=== PATIENT | female | born 1990 | race Caucasian/White ===

== ENCOUNTER 2017-09-28 11:54 | Emergency (ER) | payer MEDICAID ==
[~2017-09-28] VITALS: Ht 162.6 cm; Wt 61.2 kg
--- NOTE | 2017-09-28 13:17 | Emergency Room Report ---
History of Present Illness General Chief Complaint: Abdominal Pain Source: Patient Present Illness HPI The patient is a 27 old female who denies any medical history presenting for abdominal pain which began 4 days prior. She describes this as a 5/10 dull ache to the mid upper abdomen. Does not radiate. She also admits to nausea with vomiting with loose stools as well. She denies any known sick contacts but does admit to recent travel from [facility]. She states that symptoms have been improving since yesterday and has not had any episodes of vomiting or diarrhea within the past 24 hours. She denies any other symptoms including F, chills, SOB, back pain, dysuria, hematuria, vaginal DC Allergies: Coded Allergies: No Known Allergies (Unverified , 09/28/17) Patient History Past Medical History: see triage record Pertinent Family History: none Reviewed Nursing Documentation: PMH: Agreed, PSxH: Agreed Nursing Documentation-PMH Past Medical History: No Stated History Review of Systems All Other Systems: negative except mentioned in HPI Physical Exam Vital Signs Date Time Temp Pulse Resp B/P (MAP) Pulse Ox O2 Delivery O2 Flow Rate FiO2 09/28/17 12:08 98.6 87 20 113/76 99 Room Air Sp02 EP Interpretation: reviewed, normal General Appearance: no apparent distress, alert, GCS 15, non-toxic Head: normocephalic, atraumatic Eyes: bilateral eye normal inspection, bilateral eye PERRL Respiratory: chest non-tender, lungs clear, normal breath sounds, speaking full sentences Cardiovascular #1: regular rate, rhythm, no edema Gastrointestinal: tenderness - epigastric Genitourinary: normal inspection, no CVA tenderness Musculoskeletal: back normal, gait/station normal, normal range of motion, non- tender Neurologic: alert, oriented x3, responsive, motor strength/tone normal, sensory intact, speech normal Psychiatric: judgement/insight normal, memory normal, mood/affect normal, no suicidal/homicidal ideation Skin: normal color, no rash, warm/dry, well hydrated Medical Decision Making PA Attestation Dr. Gonzalez is my supervising physician. Patient management was discussed with my supervising physician Diagnostic Impression: Primary Impression: Gastroenteritis ER Course The patient is a 27 old female who denies any medical history presenting for abdominal pain which began 4 days prior. Differential diagnoses considered but not limited to: Gastroenteritis, , GERD, gastritis, appendicitis, pancreatitis PE: Vitals WNL. NAD. Abdomen: Normal appearance. Non distended. No ecchymosis. Increased BS. + Epigastric TTP. No McBurney point tenderness. No guarding. No CVA tenderness Urine preg neg Patient discharged with prescription for Tylenol and Zofran. ER precautions are given Laboratory Tests Test 09/28/17 12:35 Urine Color Yellow Urine Appearance Clear Urine pH 7 (4.5-8.0) Urine Specific [place] 1.010 (1.005-1.035) Urine Protein Negative (NEGATIVE) Urine Glucose (UA) Negative (NEGATIVE) Urine Ketones Negative (NEGATIVE) Urine Occult Blood Negative (NEGATIVE) Urine Nitrite Negative (NEGATIVE) Urine Bilirubin Negative (NEGATIVE) Urine Urobilinogen Normal MG/DL (0.0-1.0) Urine Leukocyte Esterase 1+ (NEGATIVE) H Urine RBC 0-2 /HPF (0 - 2) Urine WBC 2-4 /HPF (0 - 2) Urine Squamous Epithelial Cells Many /LPF (NONE/OCC) H Urine Bacteria Few /HPF (NONE) Urine HCG, Qualitative Negative Lab Results Impression Preg: neg Last Vital Signs Date Time Temp Pulse Resp B/P (MAP) Pulse Ox O2 Delivery O2 Flow Rate FiO2 09/28/17 12:08 98.6 87 20 113/76 99 Room Air Status: improved Disposition: HOME, SELF-CARE Condition: Improved Scripts Ondansetron* (ZOFRAN*) 4 Mg Tablet 4 MG ORAL Q6H Y for Nausea & Vomiting, #15 TAB Prov: TERZIAN,DAPHNIE P.A. 09/28/17 Famotidine (PEPCID) 20 Mg Tablet 20 MG ORAL DAILY, #7 TAB 0 Refills Prov: TERZIAN,DAPHNIE P.A. 09/28/17 Acetaminophen* (TYLENOL EXTRA STRENGTH*) 500 Mg Tablet 500 MG ORAL Q8H Y for Prn Headache/Temp > 101, #30 TAB 0 Refills Prov: TERZIAN,DAPHNIE P.A. 09/28/17 TERZIAN,DAPHNIE P.A. Sep 28, 2017 13:17
[2017-09-28 13:18] LABS: APPEARANCE,URINE CLEAR; BILIRUBIN, URINE NEGATIVE (NEGATIVE); GLUCOSE, URINE (UA) NEGATIVE (NEGATIVE); KETONES,URINE NEGATIVE (NEGATIVE); LEUKOCYTE ESTERASE ,URINE 1+ (NEGATIVE); NITRITE,URINE NEGATIVE (NEGATIVE); PH,URINE 7 (4.5-8.0); PROTEIN,URINE NEGATIVE (NEGATIVE); UROBILINOGEN,URINE NORMAL MG/DL (0.0-1.0)
[2017-09-28 13:21] LABS: COLOR,URINE YELLOW
[2017-09-28] MEDS ORDERED: ZOFRAN4 M3 ORAL (13:50)
[2017-09-28] MEDS ORDERED: TYLENOL EXTRA500 MG ORAL (13:50)
[2017-09-28] MEDS ORDERED: PEPCID20 MG ORAL (13:50)
[2017-09-28 14:01] VITALS: BP 113/76
== END 2017-09-28 14:01 | disposition home or self-care (01) ==
LOC: EMR 12:50
DX: K52.9 Noninfective gastroenteritis and colitis, unspecified (principal)
CPT/HCPCS: 81003; 81025; 99284

== ENCOUNTER 2018-11-16 12:20 | Emergency (ER) | payer MEDICAID ==
[~2018-11-16] VITALS: Ht 162.6 cm; Wt 56.7 kg
[~2018-11-16 12:20] MED LIST: PEPCID20 MG ORAL; TYLENOL EXTRA500 MG ORAL; ZOFRAN4 M3 ORAL
[2018-11-16 12:26] VITALS: BP 116/68
[2018-11-16] MEDS ORDERED: LAMICTAL200 MG ORAL (12:29)
[2018-11-16] MEDS ORDERED: WELLBUTRIN SR200 MG ORAL (12:29)
--- NOTE | 2018-11-16 12:31 | NUR ---
ED Nurse Note: PT.AAOX4. AMBULATORY DUE TO BEING EXPOSED TO CARBON MONOXIDE AT HER APARTMENT. HAVING A HEADACHE. 100% RA
--- NOTE | 2018-11-16 13:17 | Emergency Room Report ---
History of Present Illness General Chief Complaint: Chemical Exposure Source: Patient Present Illness HPI 28-year-old female with no significant past medical history ER requesting to be tested for carbon monoxide exposure as she reports the carbon dioxide detector in her house went off last night. Patient reports that she has been having headache for the past day prior to the monitor going off. Also one episode of nose bleeds, denies nausea vomiting, dizziness, loss of consciousness. Patient denies exposures to any actual smoke. Denied chest pain, SOB, palpitations, neurological deficits, abdominal pain, and all other associated symptoms. patient is stable, talking, communicating, with no obvious neurological deficits. Allergies: Coded Allergies: No Known Allergies (Unverified , 09/28/17) Patient History Past Medical History: see triage record Past Surgical History: unable to obtain Pertinent Family History: none Now: No Immunizations: UTD Reviewed Nursing Documentation: PMH: Agreed; PSxH: Agreed Nursing Documentation-PMH History Of Psychiatric Problem: Yes - DEPRESSION Review of Systems All Other Systems: negative except mentioned in HPI Physical Exam Vital Signs Date Time Temp Pulse Resp B/P (MAP) Pulse Ox O2 Delivery O2 Flow Rate FiO2 11/16/18 12:26 98.2 86 19 116/68 100 Room Air Sp02 EP Interpretation: reviewed, normal General Appearance: normal inspection, well appearing, no apparent distress, alert, GCS 15 Head: normocephalic, atraumatic Eyes: bilateral eye normal inspection, bilateral eye PERRL ENT: normal ENT inspection, hearing grossly normal, normal pharynx, other - no singed nostrils, no hematoma in nasal septum Neck: normal inspection, full range of motion, supple Respiratory: normal inspection, chest non-tender, lungs clear, no rhonchi, no respiratory distress, no retraction, no wheezing Cardiovascular #1: normal inspection, normal peripheral pulses, regular rate, rhythm, no edema, no gallop Gastrointestinal: normal inspection, normal bowel sounds, non tender, soft, no mass, no organomegaly Rectal: deferred Genitourinary: no CVA tenderness Musculoskeletal: normal inspection, back normal Neurologic: normal inspection, alert, oriented x3, responsive, ship scaler III-XII nml as tested, motor strength/tone normal, DTRs symmetric Psychiatric: normal inspection, judgement/insight normal, memory normal, mood/ affect normal Skin: normal inspection, normal color, no rash, warm/dry, palpation normal, well hydrated Lymphatic: normal inspection, no adenopathy, axilla node tender (R) Medical Decision Making PA Attestation all diagnoses and treatment plans were reviewed and discussed my supervising physician Dr. Harrison Diagnostic Impression: Primary Impression: Carbon monoxide exposure Additional Impressions: Headache Nosebleed ER Course 28-year-old female with no significant past medical history ER requesting to be tested for carbon monoxide exposure as she reports the carbon dioxide detector in her house went off last night. Patient reports that she has been having headache for the past day prior to the monitor going off. Also one episode of nose bleeds, denies nausea vomiting, dizziness, loss of consciousness. Patient denies exposures to any actual smoke. Denied chest pain, SOB, palpitations, neurological deficits, abdominal pain, and all other associated symptoms. patient is stable, talking, communicating, with no obvious neurological deficits. Ddx considered but are not limited to carbon monoxide exposure, carbon monoxide poisoning, headache due to other causes Vital signs: are WNL, pt. is afebrile H&PE are most consistent with carbon monoxide exposure and headache with nosebleed, ORDERS: ABG was ordered however patient is advised to go to the [place] [facility] as she wants specifically to be tested for carbon monoxide poisoning. ED INTERVENTIONS: None required at this time. DISCHARGE: At this time pt. is stable for d/c to home. Will provide printed patient care instructions, and any necessary prescriptions. Care plan and follow up instructions have been discussed with the patient prior to discharge. patient leaves without being tested for ABG patient is stable upon leaving in no distress Last Vital Signs Date Time Temp Pulse Resp B/P (MAP) Pulse Ox O2 Delivery O2 Flow Rate FiO2 11/16/18 12:26 86 19 Room Air 11/16/18 12:26 98.2 116/68 100 Disposition: HOME, SELF-CARE Condition: Stable Patient Instructions: Carbon Monoxide Poisoning, [id number] Additional Instructions: go to either [facility] for monitoring of carbon monoxide poisoning. Increase oral hydration, avoid alcohol, tobacco, no singed nostrils were observed on physical exam patient is stable and ambulatory with minor headache complains of nosebleed last night Dileep Dale Nov 16, 2018 13:17
[2018-11-16 14:00] VITALS: BP 109/71
--- NOTE | 2018-11-16 14:00 | NUR ---
ER DISCHARGE NOTE: Patient is cleared to be discharged per ERPA, pt is aox4, on room air, with stable vital signs, accompanied by boyfriend. pt was given dc instructions and told she will go to [facility] for further evaluation and assessment, pt was able to verbalize understanding, pt id band removed. pt is able to ambulate with steady gait. pt took all belongings.
== END 2018-11-16 14:00 | disposition home or self-care (01) ==
LOC: EMR 13:10
DX: T75.89XA Other specified effects of external causes, initial encounter (principal); X58.XXXA Exposure to other specified factors, initial encounter; Y92.9 Unspecified place or not applicable; R51 Headache; R04.0 Epistaxis
CPT/HCPCS: 99281